=== PATIENT | male | born 1965 ===

== ENCOUNTER → 2017-03-30 11:13 | Outpatient (CLI) | payer OTHER ==
[~2017-03-30] VITALS: Ht 152.4 cm; Wt 76.2 kg
[~2017-03-30 11:13] MED LIST: AMARYL 2MG PO; AMARYL PO; GLUCOPHAGE XR500 MG PO; HUMALOG MI100 UNIT/2 SUBCUTANEO; HUMALOG MIX 75/10 ML SQ; LIPITOR20 MG PO; METFORMIN HCL500 MG PO; NEURONTIN300 MG PO; VASOTEC5 MG PO; VOLTAREM 50 MG PO
== END | disposition home or self-care (01) ==
LOC: PPHC 11:13
DX: Z76.0 Encounter for issue of repeat prescription (principal)

== ENCOUNTER → 2017-04-09 | Outpatient (CLI) | payer OTHER ==
[~2017-04-09] VITALS: Ht 152.4 cm; Wt 76.2 kg
== END | disposition home or self-care (01) ==
LOC: PPHC 10:25
DX: Z00.00 Encounter for general adult medical examination without abnormal findings (principal); J01.80 Other acute sinusitis

== ENCOUNTER 2019-03-05 10:03 | Outpatient (CLI) | payer OTHER | END 2019-03-05 13:35 | disposition home or self-care (01) | LOC: LAB 10:03 | DX: J11.1 Influenza due to unidentified influenza virus with other respiratory manifestations (principal) ==

== ENCOUNTER 2019-12-09 08:12 | Outpatient (CLI) | payer OTHER | END 2019-12-09 08:22 | disposition home or self-care (01) | LOC: LAB 08:12 | PROVIDERS: ATTEND General Practice | DX: E11.42 Type 2 diabetes mellitus with diabetic polyneuropathy (principal); E78.2 Mixed hyperlipidemia; Z12.9 Encounter for screening for malignant neoplasm, site unspecified; Z12.11 Encounter for screening for malignant neoplasm of colon; E11.59 Type 2 diabetes mellitus with other circulatory complications; E55.9 Vitamin D deficiency, unspecified; I11.9 Hypertensive heart disease without heart failure ==

== ENCOUNTER 2019-12-11 13:40 | Emergency (ER) | payer OTHER ==
[~2019-12-11] VITALS: Ht 175.3 cm; Wt 81.6 kg
== END 2019-12-11 16:51 | disposition home or self-care (01) ==
LOC: ER 13:40
DX: E11.65 Type 2 diabetes mellitus with hyperglycemia (principal); Z03.818 Encounter for observation for suspected exposure to other biological agents ruled out

== ENCOUNTER → 2020-01-22 10:25 | Outpatient (CLI) | payer OTHER | END | disposition home or self-care (01) | LOC: LAB 10:25 | PROVIDERS: ATTEND Specialist | DX: E11.21 Type 2 diabetes mellitus with diabetic nephropathy (principal); N40.1 Benign prostatic hyperplasia with lower urinary tract symptoms; D68.8 Other specified coagulation defects; D64.89 Other specified anemias; D51.0 Vitamin B12 deficiency anemia due to intrinsic factor deficiency ==

== ENCOUNTER 2020-02-19 08:02 | Outpatient (CLI) | payer OTHER | END 2020-02-19 08:24 | disposition home or self-care (01) | LOC: LAB 08:02 | PROVIDERS: ATTEND Internal Medicine Endocrinology, Diabetes & Metabolism | DX: D64.89 Other specified anemias (principal); E11.65 Type 2 diabetes mellitus with hyperglycemia; E78.2 Mixed hyperlipidemia ==

== ENCOUNTER 2020-05-11 04:28 | Emergency (ER) | payer OTHER ==
[~2020-05-11] VITALS: Ht 175.3 cm; Wt 127.0 kg
[2020-05-11] MEDS ORDERED: EZETIMIBE10 MG (04:39)
[2020-05-11] MEDS ORDERED: CHILDREN'S ASPI81 MG (04:39)
[2020-05-11] MEDS ORDERED: TOPROL XL50 M1 (04:39)
[2020-05-11] MEDS ORDERED: EZALLOR SPRINKL40 MG (04:39)
[2020-05-11] MEDS ORDERED: DULOXETINE HCL40 MG (04:40)
[2020-05-11] MEDS ORDERED: GLIMEPIRIDE4 M1 (04:40)
[2020-05-11] MEDS ORDERED: PRECOSE25 MG (04:40)
[2020-05-11] MEDS ORDERED: AVAPRO150 MG (04:40)
== END 2020-05-11 13:19 | disposition home or self-care (01) ==
LOC: ER 04:28
DX: I16.0 Hypertensive urgency (principal); I10 Essential (primary) hypertension; R51.9 Headache, unspecified; Z03.818 Encounter for observation for suspected exposure to other biological agents ruled out

== ENCOUNTER 2020-07-01 08:37 | Outpatient (CLI) | payer OTHER ==
[~2020-07-01 08:37] MED LIST changes: +AVAPRO150 MG; +CHILDREN'S ASPI81 MG; +DULOXETINE HCL40 MG; +EZALLOR SPRINKL40 MG; +EZETIMIBE10 MG; +GLIMEPIRIDE4 M1; +PRECOSE25 MG; +TOPROL XL50 M1
== END 2020-07-01 15:24 | disposition home or self-care (01) ==
LOC: LAB 08:37
PROVIDERS: ATTEND Specialist
DX: E11.21 Type 2 diabetes mellitus with diabetic nephropathy (principal); E78.2 Mixed hyperlipidemia; E11.65 Type 2 diabetes mellitus with hyperglycemia; E11.9 Type 2 diabetes mellitus without complications

== ENCOUNTER 2020-07-20 13:41 | Outpatient (CLI) | payer OTHER | END 2020-07-20 14:01 | disposition home or self-care (01) | LOC: MRI 13:41 | PROVIDERS: ATTEND Specialist | DX: I63.411 Cerebral infarction due to embolism of right middle cerebral artery (principal) | CPT/HCPCS: 70553 ==